=== PATIENT | female | born 1940 | race Caucasian/White ===

== ENCOUNTER 2016-11-15 10:14 | Inpatient (IN) ==
--- NOTE | 2016-11-12 13:30 | EKG Report ---
Test Performed on : 11/12/2016 11:32:34 AM Test Reason : pat Blood Pressure : / mmHG Vent. Rate : 122 BPM Atrial Rate : 122 BPM P-R Int : 184 ms QRS Dur : 080 ms QT Int : 308 ms P-R-T Axes : 020 008 056 degrees QTc Int : 438 ms Sinus tachycardia. Nonspecific T wave abnormality Abnormal ECG No previous ECGs available Confirmed by Victor Manuel PERSON, Ja Faye ([id number]) on 11/13/2016 5:46:05 PM
[2016-11-15] MEDS ORDERED: REGLAN ONE (10:41)
[2016-11-15] MEDS ORDERED: PEPCID ONE ×2 (10:41)
[2016-11-15] MEDS ORDERED: LR 1,000 ML ONE ×2 (10:42→16:52)
[2016-11-15] MEDS ORDERED: KEFZOL 1 GM/D5W 1 GM/50 ML IVPB ONE (10:42)
[2016-11-15] MEDS ORDERED: TOPROL XL ONE (11:04)
[2016-11-15] MEDS ORDERED: MARCAINE 0.25% PF/EPI 1:200,000 ONE (14:14)
[2016-11-15] MEDS ORDERED: MURI-LUBE MINERAL OIL ONE (14:27)
[2016-11-15] MEDS ORDERED: D5 1/2 NS + KCL 20 MEQ 1,000 ML ONE (16:45)
[2016-11-15] MEDS ORDERED: FENTANYL ONE (16:45)
[2016-11-15] MEDS ORDERED: DIPRIVAN 1% ONE (16:45)
[2016-11-15] MEDS ORDERED: ZOFRAN ONE (16:51)
[2016-11-15] MEDS ORDERED: XYLOCAINE-MPF 2% ONE (16:52)
[2016-11-15] MEDS ORDERED: DECADRON ONE (16:52)
[2016-11-15] MEDS ORDERED: EPHEDRINE ONE (16:52)
[2016-11-15] MEDS ORDERED: TYLENOL PO PRN (16:54)
[2016-11-15] MEDS ORDERED: NORCO-10 PO PRN (16:55)
[2016-11-15] MEDS ORDERED: SODIUM CHLORIDE 0.9% INJ PRN (17:00)
[2016-11-15] MEDS ORDERED: PHENERGAN IV PRN (17:00)
[2016-11-15] MEDS: MORPHINE IV PRN (17:49)
[2016-11-15] MEDS: ZOSYN 3.375 GM/NS 3.375 GM/50 ML IVPB IV SCH (18:52)
[2016-11-15] MEDS: TORADOL IV SCH ×2 (18:53→21:48)
[2016-11-15] MEDS ORDERED: PERIDEX MT SCH (21:00)
[2016-11-15] MEDS: PERIDEX MT SCH (21:48)
[2016-11-16] MEDS: ZOSYN 3.375 GM/NS 3.375 GM/50 ML IVPB IV SCH ×6 (00:38→23:16)
[2016-11-16] MEDS: TORADOL IV SCH ×5 (04:09→23:16)
[2016-11-16] MEDS: D5 1/2 NS + KCL 20 MEQ 1,000 ML IV SCH ×3 (04:09→23:32)
[2016-11-16 06:37] LABS: MANUAL DIFF NEEDED? NO
[2016-11-16 06:45] LABS: BASO% 0.1 % (0.0-0.8); HEMATOCRIT 29.4 % (37.0-47.0); HEMOGLOBIN 9.4 g/dL (12.0-16.0); IMM GRAN# 0.02 X1000 (0.0-0.04); IMM GRAN% 0.2 % (0.0-0.5); LYMPH# 0.95 X1000 (1.2-3.4); LYMPH% 9.7 % (20.5-51.1); MCH 31.2 PG (27-31); MCV 97.7 FL (81-99); MONO# 1.37 X1000 (0.11-0.59); MPV 10.4 FL (7.4-10.4); PLT 247 X1000 (130-400); RBC 3.01 XMIL (4.2-5.4)
[2016-11-16 07:10] LABS: AGAP 12; BUN 11 mg/dL (8-22); CALCIUM 7.4 mg/dL (8.8-10.2); CHLORIDE 104 mmol/L (98-107); COSMO 283; POTASSIUM 3.8 mmol/L (3.5-5.1); SODIUM 141 mmol/L (136-145); TCO2 25 mmol/L (25-35)
[2016-11-16] MEDS: TOPROL XL PO SCH (13:12)
[2016-11-16] MEDS: LOTENSIN PO SCH (13:12)
[2016-11-16] MEDS: PERIDEX MT SCH ×2 (13:12→20:13)
[2016-11-16] MEDS: MORPHINE IV PRN (23:30)
[2016-11-17] MEDS: TORADOL IV SCH ×4 (05:53→23:11)
[2016-11-17] MEDS: ZOSYN 3.375 GM/NS 3.375 GM/50 ML IVPB IV SCH ×4 (05:53→23:11)
[2016-11-17] MEDS: D5 1/2 NS + KCL 20 MEQ 1,000 ML IV SCH (05:53)
[2016-11-17] MEDS: LOTENSIN PO SCH (10:55)
[2016-11-17] MEDS: PERIDEX MT SCH ×2 (10:55→21:24)
[2016-11-17] MEDS: TOPROL XL PO SCH (10:55)
[2016-11-17] MEDS: MORPHINE IV PRN (10:56)
[2016-11-18] MEDS: D5 1/2 NS + KCL 20 MEQ 1,000 ML IV SCH (03:24)
[2016-11-18] MEDS: TORADOL IV SCH (04:57)
[2016-11-18] MEDS: ZOSYN 3.375 GM/NS 3.375 GM/50 ML IVPB IV SCH ×4 (05:00→22:52)
[2016-11-18] MEDS: TOPROL XL PO SCH (08:27)
[2016-11-18] MEDS: PERIDEX MT SCH ×2 (08:27→21:10)
[2016-11-18] MEDS: LOTENSIN PO SCH (08:27)
[2016-11-18] MEDS: MORPHINE IV PRN (10:24)
[2016-11-18] MEDS: TORADOL PO SCH ×3 (11:29→22:51)
--- NOTE | 2016-11-18 20:03 | PROGRESS NOTE ---
DATE: 11/18/2016 Ms. Olvera is now postop day 3 from a left modified radical mastectomy. Her tumor was so large in her left breast that we could not bring the skin together so she has an open wound medially which we have treated with dressing changes but today we will place a wound VAC on it with the help of our wound care nurse. We will try to get her to rehabilitation in the next 2 days, she will need wound care, and then she will need a split-thickness skin graft once this wound begins to granulate. She does have a JIMMY drain in her left axilla which is draining serous fluid and the lateral aspect of her wound is closed using brie and it seems to be healing without evidence of infection. She is on IV Zosyn because she had an infected necrotic tumor at the time of surgery. Overall I think she is doing well and we will continue IV antibiotics and wound care until discharge to rehabilitation. We have asked our wound care nurse to follow her and I have also put in a Purse Seiner consultation today. cc: Jia Blackburn MD
[2016-11-19] MEDS: ZOSYN 3.375 GM/NS 3.375 GM/50 ML IVPB IV SCH ×4 (02:32→23:19)
[2016-11-19] MEDS: D5 1/2 NS + KCL 20 MEQ 1,000 ML IV SCH (05:32)
[2016-11-19] MEDS: TORADOL PO SCH ×5 (05:33→22:20)
[2016-11-19] MEDS: LOTENSIN PO SCH (10:33)
[2016-11-19] MEDS: PERIDEX MT SCH ×2 (10:34→21:47)
[2016-11-19] MEDS: TOPROL XL PO SCH (10:34)
--- NOTE | 2016-11-19 11:19 | PROGRESS NOTE ---
DATE: 11/19/2016 SUBJECTIVE: Ms. Olvera is now postop day 4 from a left modified radical mastectomy. Her tumor was so large that we could not get her skin closed, so she is hospitalized with a wound VAC. She also has a JIMMY drain in place in the left axilla. She remains on IV antibiotics because of her open draining cancer when we performed her left modified radical mastectomy. Wound VAC was placed yesterday by a wound care nurse. The JIMMY drain remains in place and the drainage is satisfactory. There is no evidence of infection involving her wound and we are encouraging good nutrition. We need to send her we feel to rehab for wound care. Hopefully, plans will be made today and tomorrow for this. Her heart rate is 79, blood pressure 164/82, O2 saturation 97%. She is afebrile. She is eating 75% to 100% of her meals. She is voiding without problems and has had a bowel movement during her hospitalization. Her JIMMY drain is draining 20 to 75 mL per shift. cc: Jia Blackburn MD
[2016-11-20] MEDS: TORADOL PO SCH ×2 (06:01→12:10)
[2016-11-20] MEDS: ZOSYN 3.375 GM/NS 3.375 GM/50 ML IVPB IV SCH ×3 (06:04→12:11)
[2016-11-20] MEDS ORDERED: PNEUMOVAX 23 IM ONE (09:15)
[2016-11-20] MEDS: TOPROL XL PO SCH (09:50)
[2016-11-20] MEDS: LOTENSIN PO SCH (09:50)
[2016-11-20] MEDS: PERIDEX MT SCH (09:50)
--- NOTE | 2016-11-20 11:29 | DISCHARGE SUMMARY ---
ADMISSION DATE: 11/15/2016 DISCHARGE DATE: 11/20/2016 ADMITTING DIAGNOSIS: Advanced left breast cancer. DISCHARGE DIAGNOSIS: Advanced left breast cancer. PRINCIPAL PROCEDURE: Left modified radical mastectomy on 11/20/2016. DISCHARGE DISABILITY: Full. DISCHARGE DISPOSITION: She will be going to rehabilitation for wound care. DISCHARGE MEDICATIONS: Benazepril 10 mg p.o. daily; Lorcet Plus 1 p.o. q.4 hours p.r.n. pain; Toprol XL 25 mg p.o. daily. ALLERGIES: No known drug allergies. DIET: Regular. DISPOSITION: She needs to return to our outpatient offices in approximately 1 week to determine whether her JIMMY drain needs to be removed and for a wound check. She will be discharged with a wound VAC and that needs to be continued at discharge. HOSPITAL COURSE: Ms. Melody Olvera is a 76-year-old white female who had an advanced left breast cancer involving her entire breast. This tumor started to involve her skin and she had an open wound which was messy. Initially, she was treated with chemotherapy under the direction of Dr. Ruth Caballero, but she came back to our office for consideration of a toilet mastectomy, which we performed on her day of admission, 11/17/2016. Because of her large tumor, we were unable to close the mastectomy wound primarily and were using a wound VAC to help with granulation tissue and to manage this wound. She also has a JIMMY drain within her left axilla because we did dissect out her left axillary lymph nodes. We kept her on IV antibiotics after surgery because of the contaminated draining open wound or cancer. She did quite well after surgery. Our Wound Care nurse placed a wound VAC and her JIMMY drain was emptied. She was eating 75% to 100% of her meals. Her pain was well controlled and it was felt safe to discharge her to rehabilitation to help with care of her wounds, with followup in our outpatient office. At discharge, her heart rate was 84, blood pressure 220/96, and O2 saturation 98%. She was voiding without difficulty. She was eating a regular diet and she was afebrile on IV Zosyn. Our plans are to stop her IV Zosyn, and return her to her home medications and Lorcet Plus for pain. cc: Jia Blackburn MD
--- NOTE | 2016-11-20 11:44 | OPERATIVE NOTE ---
PROCEDURE DATE: 11/15/2016 PREOPERATIVE DIAGNOSIS: Locally advanced left breast cancer. POSTOPERATIVE DIAGNOSIS: Locally advanced left breast cancer. PRINCIPAL PROCEDURE: Left modified radical mastectomy. SURGEON: Jia Blackburn MD ANESTHESIA: General. ESTIMATED BLOOD LOSS: 100 mL. DRAINS: 10 flat Raymond-Rosen drain left axilla. INDICATIONS: Ms Melody Olvera is a 76-year-old white female who has a locally advanced breast cancer that involves her entire breast. It has also broken through the skin and is draining and the wound has become messy. She has seen Dr. Ruth Caballero for chemotherapy because she has metastatic disease to her lung, but despite her chemotherapy her local tumor in the left breast has become more difficult to manage and we recommended a toilet mastectomy. FINDINGS: The tumor seem to involve the pectoralis major muscle medially. We took some of that muscle with the tumor. We were unable to close the wound because of the large size of the tumor medially. We closed the lateral aspect of the wound and placed a JIMMY drain in the left axilla. We did dissect out at least level 1 and 2 lymph nodes of the axilla. We preserved the thoracodorsal and long thoracic nerves in the left axilla. DESCRIPTION OF PROCEDURE: The patient was brought to the operating room, placed supine, received general anesthesia, was intubated. Her left chest and breast and axilla were prepped and draped within a sterile field. She received Ancef prophylactically. I marked a transverse mastectomy incision, which encompassed most of the skin of the breast because of this tumor and it extended laterally into the left axilla. I made the incision with a 10 blade scalpel through the skin and then used the cautery to create a superior flap to the axilla and an inferior flap to the inframammary fold. I then used the cautery to remove the breast from medial to lateral off the left chest and I had to take some of the underlying pectoralis major muscle especially medially. Because of the size of the tumor, I removed the breast and it was sent as a separate specimen to the radiologist. I then dissected out the left axilla. I identified the margins of the axilla, of the serratus anterior medially, the axillary vein superiorly, and the latissimus dorsi laterally. I dissected the axillary contents from superior to inferior. We identified the thoracodorsal and long thoracic nerves and had a good level 1 and 2 axillary dissection. We did take the intercostal brachial nerves. This specimen was sent separately for permanent section. The JIMMY drain was placed in the left axilla. I was able close the lateral aspect of the wound with a skin clip document preparer microfilming. The medial aspect of the wound had to remain open and we dressed it with saline dressings with plans later to put a wound VAC on it. She tolerated the procedure well with plans for her to go to the recovery room and then be admitted to the hospital. cc: Jia Blackburn MD
[2016-11-20 14:40] VITALS: BP 204/78
== END 2016-11-20 18:13 ==
LOC: OR 10:14 → 4N 10:14 → OBSVTOIN 15:02
PROVIDERS: ADMIT Surgery; ATTEND Surgery

== ENCOUNTER 2016-12-05 12:52 | Inpatient (IN) ==
[2016-12-05 13:42] LABS: MANUAL DIFF NEEDED? NO
[2016-12-05 13:44] LABS: BASO% 0.8 % (0.0-0.8); EOS# 0.18 X1000 (0.0-0.7); EOS% 3.5 % (0.0-10.0); HEMATOCRIT 36.8 % (37.0-47.0); HEMOGLOBIN 11.5 g/dL (12.0-16.0); IMM GRAN# 0.03 X1000 (0.0-0.04); IMM GRAN% 0.6 % (0.0-0.5); LYMPH# 1.58 X1000 (1.2-3.4); LYMPH% 30.3 % (20.5-51.1); MCH 30.7 PG (27-31); MCHC 31.3 g/dL (33-37); MCV 98.4 FL (81-99); MONO# 0.81 X1000 (0.11-0.59); MONO% 15.5 % (1.7-9.3); MPV 10.7 FL (7.4-10.4); NEUT% 49.3 % (42.2-75.2); PLT 230 X1000 (130-400); RBC 3.74 XMIL (4.2-5.4)
[2016-12-05 13:52] LABS: ACETONE SERUM NEGATIVE (NEGATIVE)
[2016-12-05 14:05] LABS: AGAP 13; ALBUMIN 3.6 g/dL (3.5-5.0); ALKALINE PHOSPHATASE 77 U/L (32-104); BUN 15 mg/dL (8-22); CALCIUM 8.2 mg/dL (8.8-10.2); CHLORIDE 101 mmol/L (98-107); COSMO 281; GOT 14 U/L (10-30); GPT 8 U/L (10-36); MAGNESIUM 2.1 mg/dL (1.5-2.7); SODIUM 140 mmol/L (136-145); TCO2 26 mmol/L (25-35); TOTAL BILIRUBIN 0.17 mg/dL (0.20-1.00); TOTAL PROTEIN 6.3 g/dL (6.3-8.3)
[2016-12-05 14:24] LABS: FREE T4 1.09 ng/dL (0.93-1.70)
--- NOTE | 2016-12-05 14:56 | Diag Imaging Result Document ---
PROCEDURE NAME: HEAD W/O CONTRAST - 12/05/2016 CT OF THE HEAD WITHOUT CONTRAST: FINDINGS: There are patchy areas of lucency in the white matter of both hemispheres, particularly in the right frontal lobe and the posterior left hemisphere. There are calcifications in the globus pallidus bilaterally. Considering differences in technique, there has been no significant change since 08/05/2016. No evidence of bleed or mass effect is present. IMPRESSION: 1. Extensive chronic ischemic white matter change. 2. Microvascular changes in the basal ganglia and thalami. 3. No evidence of acute change since 08/05/2016.
[2016-12-05 15:00] LABS: URINE MICRO REVIEW NEEDED? NO; URINE SOURCE CLEAN CATCH
[2016-12-05 15:08] LABS: BILIRUBIN URINE NEGATIVE (NEGATIVE); BLOOD URINE NEGATIVE (NEGATIVE); COLOR YELLOW; GLUCOSE URINE NEGATIVE (NEGATIVE); LEUKOCYTES URINE TRACE (NEGATIVE); NITRITE URINE NEGATIVE (NEGATIVE); PROTEIN URINE NEGATIVE (NEGATIVE); SP GRAVITY URINE 1.014; TURBIDITY URINE CLEAR (CLEAR); UROBILINOGEN URINE NORMAL (NORMAL)
[2016-12-05 15:09] LABS: UR EPITHELIAL CELLS <10 /HPF (<10); URINE BACTERIA NEGATIVE /HPF; URINE CULTURE NEEDED? YES; URINE RBC <10 /HPF (<10); URINE WBC <10 /HPF (<10)
--- NOTE | 2016-12-05 16:03 | ED EKG INTERP ---
This chart was entered by Tiffanie Cadet Scribe, acting as scribe for Leonie Millan MD. EKG Interpretation - EKG Time of EKG reading by physician:: 14:16 EKG Read and Signed by:: Leonie Millan EKG Interpretation (*Must complete 3 of following elements*): Abnormal Rate: 88 Rhythm: nsr Gobler: normal QRS: LVH ME Interval: normal ST Wave: normal This chart was documented by the indicated scribe, (Tiffanie Cadet Scribe) and accurately reflects the services I performed and decisions made by me, Leonie Millan MD, as attested by the provider's signature.
--- NOTE | 2016-12-05 16:20 | PROVIDER DOCUMENTATION ---
This chart was entered by Tiffanie Cadet Scribe, acting as scribe for Leonie Millan MD. HPI-Psychological Disorder - General Stated Complaint: HI, schizophrenia Time Seen by Provider: 12/05/16 12:56 Source: patient Allergies/Adverse Reactions: Patient Allergies Allergy/AdvReac Type Severity Reaction Status Date / Time No Known Allergies Allergy Verified 12/05/16 16:54 Home Medications: Home Medication List Medication Instructions Recorded Confirmed Last Taken Type Benazepril HCl 10 mg PO DAILY 11/12/16 12/05/16 12/05/16 08:00 History Metoprolol Succinate E.r. [Toprol 25 mg PO DAILY 11/12/16 12/05/16 12/05/16 08: 00 History Xl] Hydrocodone/APAP 7.5 mg/325 mg 1 each PO Q4H PRN PRN #30 tablet 11/20/1612/05/16 08:00 Rx [[place]-7.5] Acetaminophen 325 mg PO DAILY 12/05/16 12/05/16 12/05/16 08:00 History Ondansetron [Zofran] 4 mg PO PRN PRN 12/05/16 12/05/16 Unknown History Protein Supplement [Promod] 30 ml PO BID 12/05/16 12/05/16 12/05/16 08:00 History - History of Present Illness-Psych Nature of Presenting Problem: 76 y/o F presents to ED via EMS. Pt was brought in from intermediate. ER nursing staff states to Dr. Millan that pt wrote a note. States she wrote this about her roommate and knifes were drawn on the sheet. When pt is asked if she wants to hurt somebody pt states " i dont know where you got that. who told you that". Pt states " why am i here". Pt is alert. Pt states she had a mastectomy but unsure of when. Pt denies having any cp/abd pain/sob. Pt does have pedal edema worse on the right leg than the left. Onset/Duration: reports: just prior to arrival Psychiatric Complaints: reports: homicidal thoughts (per nursing stafff at intermediate) Substance Use: reports: denies Patient arrived by:: EMS called by spouse/family (nursing staff) Review of Systems - Adult - REVIEW OF SYSTEMS - ADULT Constitutional: denies: chills, fever Ears, Nose, Mouth & Throat: denies: ear pain, throat pain Cardiovascular: denies: chest pain, palpitations Respiratory: denies: cough, shortness of breath Gastrointestinal: denies: abdominal pain, diarrhea, nausea, vomiting Musculoskeletal: denies: bone pain, back pain Neurological: denies: dizziness/vertigo, headache/migraines Psychiatric: reports: other (HI per nursing staff). denies: panic attacks Past History - Adult - PAST MEDICAL HISTORY-ADULT Review of Records: reports: Old Records Reviewed, Nursing Assessment Review Major Childhood Illnesses: reports: denies history Cardiovascular: reports: denies history Respiratory: reports: denies history Gastrointestinal: reports: denies history Obstetrical/Gynecological: reports: denies history Genitourinary: reports: denies history Musculoskeletal: reports: denies history Neurological: reports: denies history Psychiatric: reports: schizophrenia Endocrine/Immune: reports: denies history Other Conditions: reports: denies history - IMMUNIZATION STATUS Childhood Immunizations: See Nurse Assessment Flu Vaccine: See Nurse Assessment - FAMILY HISTORY Family History: other (breast cancer) - SOCIAL HISTORY Smoking: denies Substance Use: denies Physical Exam-Psych Focus - Physical Exam-Psych Appearance: appropriate appearance, neat, no apparent distress, alert Neurological: alert, calm Behavior/Eye Contact/Speech: good eye contact, normal speech Thoughts/Hallucinations: no apparent hallucination HENMT: moist mucous membranes, normal ENT inspection Neck: full range of motion Respiratory: chest non-tender, lungs clear, normal breath sounds Cardiovascular: normal peripheral pulses, regular rate, rhythm, no edema Abdominal Exam: non tender, soft Back Exam: no CVA tenderness, no vertebral tenderness Extremity: non-tender, normal gait Integumentary: normal color, normal turgor Progress - PLAN OF CARE/RESULTS Progress/Plan/Lab Results: Vital Signs - 8 hr 12/05/16 14:05 Temperature 98.1 F Pulse Rate 95 H Respiratory Rate 18 Blood Pressure 197/78 O2 Sat by Pulse Oximetry 98 Laboratory Results - last 24 hr 12/05/16 12/05/16 12/05/16 13:25 13:25 13:25 WBC 5.21 RBC 3.74 L Hgb 11.5 L Hct 36.8 L MCV 98.4 MCH 30.7 MCHC 31.3 L RDW Std Deviation 14.7 H Plt Count 230 MPV 10.7 H Immature Gran % (Auto) 0.6 H Neut % (Auto) 49.3 Lymph % (Auto) 30.3 [place] % (Auto) 15.5 H Eos % (Auto) 3.5 Baso % (Auto) 0.8 Immature Gran # (Auto) 0.03 Neut # (Auto) 2.57 Lymph # (Auto) 1.58 [place] # (Auto) 0.81 H Eos # (Auto) 0.18 Baso # (Auto) 0.04 D-Dimer Sodium 140 Potassium 4.0 Chloride 101 Carbon Dioxide 26 Anion Gap 13 BUN 15 Creatinine 0.7 Estimated GFR/1.73 m2 > 60 BUN/Creatinine Ratio 21 Glucose 109 H Calculated Osmolality 281 Calcium 8.2 L Magnesium 2.1 Total Bilirubin 0.17 L AST 14 ALT 8 L Alkaline Phosphatase 77 Troponin T < 0.010 Total Protein 6.3 Albumin 3.6 Globulin 2.7 Albumin/Globulin Ratio 1.3 Vitamin B12 Folate TSH Free T4 Urine Source Urine Color Urine Turbidity Urine pH Ur Specific [place] Urine Protein Ur Glucose (Stick) Ur Ketones (Stick) Urine Blood Urine Nitrite Urine Bilirubin Urobilinogen Dipstick Urine Leukocytes Urine WBC (Auto) Urine RBC (Auto) U Epithel Cells (Auto) Urine Bacteria (Auto) Salicylates < 3.00 L Acetone Level NEGATIVE RPR 12/05/16 12/05/16 12/05/16 13:25 13:25 13:25 WBC RBC Hgb Hct MCV MCH MCHC RDW Std Deviation Plt Count MPV Immature Gran % (Auto) Neut % (Auto) Lymph % (Auto) [place] % (Auto) Eos % (Auto) Baso % (Auto) Immature Gran # (Auto) Neut # (Auto) Lymph # (Auto) [place] # (Auto) Eos # (Auto) Baso # (Auto) D-Dimer Sodium Potassium Chloride Carbon Dioxide Anion Gap BUN Creatinine Estimated GFR/1.73 m2 BUN/Creatinine Ratio Glucose Calculated Osmolality Calcium Magnesium Total Bilirubin AST ALT Alkaline Phosphatase Troponin T Total Protein Albumin Globulin Albumin/Globulin Ratio Vitamin B12 149 L Folate 8.1 L TSH 4.94 H Free T4 1.09 Urine Source Urine Color Urine Turbidity Urine pH Ur Specific [place] Urine Protein Ur Glucose (Stick) Ur Ketones (Stick) Urine Blood Urine Nitrite Urine Bilirubin Urobilinogen Dipstick Urine Leukocytes Urine WBC (Auto) Urine RBC (Auto) U Epithel Cells (Auto) Urine Bacteria (Auto) Salicylates Acetone Level RPR NON-REACTIVE 12/05/16 12/05/16 13:25 14:48 WBC RBC Hgb Hct MCV MCH MCHC RDW Std Deviation Plt Count MPV Immature Gran % (Auto) Neut % (Auto) Lymph % (Auto) [place] % (Auto) Eos % (Auto) Baso % (Auto) Immature Gran # (Auto) Neut # (Auto) Lymph # (Auto) [place] # (Auto) Eos # (Auto) Baso # (Auto) D-Dimer 2.19 H Sodium Potassium Chloride Carbon Dioxide Anion Gap BUN Creatinine Estimated GFR/1.73 m2 BUN/Creatinine Ratio Glucose Calculated Osmolality Calcium Magnesium Total Bilirubin AST ALT Alkaline Phosphatase Troponin T Total Protein Albumin Globulin Albumin/Globulin Ratio Vitamin B12 Folate TSH Free T4 Urine Source CLEAN CATCH Urine Color YELLOW Urine Turbidity CLEAR Urine pH 6.0 Ur Specific [place] 1.014 Urine Protein NEGATIVE Ur Glucose (Stick) NEGATIVE Ur Ketones (Stick) NEGATIVE Urine Blood NEGATIVE Urine Nitrite NEGATIVE Urine Bilirubin NEGATIVE Urobilinogen Dipstick NORMAL Urine Leukocytes TRACE A Urine WBC (Auto) <10 Urine RBC (Auto) <10 U Epithel Cells (Auto) <10 Urine Bacteria (Auto) NEGATIVE Salicylates Acetone Level RPR Orders Category Date Time Status ABD/PELVIS/PULM ARTERIES [CT] Stat Exams 12/05/16 16:02 Taken HEAD W/O CONTRAST [CT] Stat Exams 12/05/16 13:06 Completed ACETONE SERUM [CHEM] Stat Lab 12/05/16 13:25 Completed CBC WITH ELECTRONIC DIFF [HEME] Stat Lab 12/05/16 13:25 Completed COMPREHENSIVE METABOLIC PANEL [CHEM] Stat Lab 12/05/16 13:25 Completed D-DIMER [CHEM] Stat Lab 12/05/16 13:25 Completed FOLATE Stat Lab 12/05/16 13:25 Completed FREE T4 Stat Lab 12/05/16 13:25 Completed MAGNESIUM [CHEM] Stat Lab 12/05/16 13:25 Completed RPR [SERO] Stat Lab 12/05/16 13:25 Completed SALICYLATES [TDM] Stat Lab 12/05/16 13:25 Completed TROPONIN T Stat Lab 12/05/16 13:25 Completed TSH Stat Lab 12/05/16 13:25 Completed URINALYSIS W/POSS RFLX CULT-1 [URINALYSIS] Stat Lab 12/05/16 14:48 Completed URINE CULTURE [RM] Routine Lab 12/05/16 15:20 Received VITAMIN B12 Stat Lab 12/05/16 13:25 Completed EKG [EKG] Stat Ther 12/05/16 13:01 Ordered US [Venous U/S Bilateral Legs] Stat Ther 12/05/16 14:56 Completed Transfer/Admit Order [TRANSFER] Routine Transfer 12/05/16 17:13 Ordered PT REFUSED POLI ULTRASOUND DR MILLAN IS SPEAKING WITH PT NURSE IS CALLING TO RECEIVE A COURT HOLD ON PT . 1551- PT HAS A VERBAL RN PSYCHIATRIC ORDER AT THIS TIME. SISTER IS AT BED SIDE. SISTER STATES PT HAD MASTECTOMY X 3 WEEKS AGO STATES IT IS AN OPEN WOUND. SISTER ALSO STATES PT HAS LUNG CANCER BUT IS UNSURE OF THE STAGE OR PROCESS THAT IS HAPPENING. SISTER DENIES ABOUT PT THREATENING TO STAB HER ROOMMATE. STATES HER ROOMMATE IS LOUD BUT WOULD NOT DO ANYTHING LIKE THAT. SISTER WILL TRY TO GET PT TO COOPERATIVE FOR POLI AND A CT OF THE CHEST WILL BE ORDERED. SISTER IS AWARE OF PLAN. PT HAS A POSITIVE DVT IN R LEG Result Diagrams: 12/05/16 13:25 12/05/16 13:25 - REASSESSMENT Reassessment #1 Time Reassessed: 15:45 Status: unchanged (PT WILL NOT DO POLI; DR MILLAN IS SPEAKING WITH PT.) Reassessment #2 Time Reassessed: 16:05 Status: unchanged (PT SISTER IS AT BEDSIDE) - CONSULTS/PCP/HOSPITALIST Notification #1 *Consult/PCP/Hospitalist*: Time Discussed: 17:17 Consult Disposition: Admit (ICU admit) Departure - Departure Time of Disposition Decision: 17:34 DIAGNOSIS: Psychosis DVT (deep venous thrombosis) Qualifiers: DVT location: lower extremity Affected thrombotic vein of extremity: popliteal Laterality: right Chronicity: acute Qualified Code(s): I82.431 - Acute embolism and thrombosis of right popliteal vein Disposition: ADMITTED INPATIENT 09 Certified Medical Emergency: Emergent Condition: Stable Referrals and Follow-Ups: None,PCP [Primary Care Provider] - - Critical Care Note This patient required my direct & personal management of CC.: No This chart was documented by the indicated scribe, (Tiffanie Cadet Scribe) and accurately reflects the services I performed and decisions made by Monty ruiz Wenli X, MD, as attested by the provider's signature.
[2016-12-05] MEDS ORDERED: LOVENOX 1 MG/KG SUBQ ONE (17:36)
[2016-12-05] MEDS ORDERED: LOVENOX SUBQ ONE (18:00)
--- NOTE | 2016-12-05 18:18 | Diag Imaging Result Document ---
PROCEDURE NAME: ABD/PELVIS/PULM ARTERIES - 12/05/2016 CT OF THE CHEST WITH INTRAVENOUS CONTRAST: FINDINGS: Contrast opacification of the pulmonary arteries is slightly suboptimal. There are no definite filling defects. There is no evidence of aortic aneurysm or dissection. There are no pleural effusions. There is a somewhat heterogeneous nodule in the right thyroid lobe measuring in excess of 2.8 cm in AP dimension. This was also the case on 08/03/2016. There has been left mastectomy since the previous study. There is a large apparent seroma in the space deep to the lateral paralysis muscle on the left, extending into the axillary region. There is a 16 mm left hilar node which is slightly larger than on the previous study at which time it measured 15 mm. There is a nodule in the posterior left lower lobe on image 64 which has diminished in size since the previous study from slightly less than 7 mm to slightly over 5 mm on the current study. There is another lesion more laterally located in the costophrenic sulcus region on the left which measures slightly over 7 mm currently compared to slightly less than 7 mm previously. There is patchy airtrapping. Two nodules are seen in the right middle lobe on image 68, one of which was not present previously. This measures less than 5 mm in diameter. There is a fairly well circumscribed lytic lesion on the right side of T11 which has not changed significantly other than slight increase in sclerosis in the borders of the lesion since the previous study. IMPRESSION: 1. No evidence of pulmonary emboli. 2. Metastatic lesions present in the left lower lobe and right middle lobe, some of which have enlarged or were not present at the time of the previous study. CT OF THE ABDOMEN WITH INTRAVENOUS CONTRAST: FINDINGS: There are some scattered cysts within the liver, including a fairly large bilobed cyst in the left hepatic lobe. In addition to this there is a slightly heterogeneous hypodense nodule present in the upper portion of the dome of the right hepatic lobe seen best on image 7 which measures in excess of 18 mm and transverse dimension. This is larger than on 08/05/2016. There is another somewhat indistinctly marginated lucent lesion present in the inferior right lobe posterior to the gallbladder fossa, measuring less than 9 mm in diameter. This is slightly more conspicuous than on the previous study. It may be slightly larger as well. These may be metastatic lesions. The adrenal glands are not enlarged and are unchanged in appearance. The kidneys are without evidence of hydronephrosis or mass. There is a small cyst in the upper pole of the left kidney which has not changed. The spleen is not enlarged. The pancreas is stable in appearance. There is a small calcification in the head of the pancreas which was present previously. There is stool throughout the colon. The small bowel is not distended. There is no evidence of significant adenopathy. The appendix is not enlarged. CT OF THE PELVIS WITH INTRAVENOUS CONTRAST: FINDINGS: There are scattered diverticula in the sigmoid colon without evidence of active diverticulitis. There is no evidence of free fluid. There is a lytic lesion in the right iliac wing with some slight matrix calcification. There is cortical breakthrough both anteriorly and posteriorly. The intraosseous and extraosseous component of the mass measure in excess of 4.3 cm in thickness compared to the previous study at which time it measured 3.9 cm. IMPRESSION: Hepatic and osseous metastatic disease which has worsened since the previous study of 08/05/2016.
[2016-12-05] MEDS ORDERED: CATAPRES PO ONE (18:37)
[2016-12-05] MEDS ORDERED: CATAPRES PO PRN (21:01)
[2016-12-05] MEDS ORDERED: NORCO-7.5 PO PRN (21:01)
[2016-12-05] MEDS ORDERED: LOVENOX 1 MG/KG SUBQ SCH (21:01)
[2016-12-05] MEDS ORDERED: MORPHINE IV PRN ×2 (21:01→21:29)
[2016-12-05] MEDS ORDERED: CYANOCOBALAMIN IM ONE (21:01)
[2016-12-05] MEDS ORDERED: ZOFRAN IV PRN (21:01)
--- NOTE | 2016-12-05 21:07 | HISTORY AND PHYSICAL ---
CHIEF COMPLAINT: Agitation but also some right lower extremity swelling and discomfort. HISTORY OF PRESENT ILLNESS: Briefly this is a 75-year-old female who had a mass in her left breast. I actually saw her in July when she was first diagnosed. She had a large breast mass which was felt to be a carcinoma which had already been diagnosed as breast cancer. There is a concern that it may be metastatic at this point, but in any case she was discharged and she is status post mastectomy, however, she has a very large open wound apparently that initial plan was for skin graft but at this point that was not the plan. She eventually was able to go to rehabilitation for that process. She has been in rehabilitation at this point. Apparently she had some issues she states not with her roommate but with skilled nursing services at the facility in which she was concerned that they were stealing her personal objects. She put a sign up that said, "Please do not touch" or Please stay away." Apparently there were a few knives kept from her silverware from her feeding and somehow it ended up being construed that the patient was threatening the life of her roommate, and there was a psychiatric issue with harming other people. She denied this to me. She states that she just indicated that she was just concerned about someone stealing her stuff. She denies any suicidal or homicidal ideation. Reportedly she has a history of bipolar disorder. There are no visits that indicate any psychiatric problems here. She appears alert and without any complications. She had an MRI which shows no metastatic lesions so I am not sure how to place her psychiatric complaints although at this point I do not think she has an active psychiatric issue. Part of braden workup in the ER did show a DVT in her right popliteal area and she is being admitted for that and observation because she does have an open wound that may be complicated by bleeding since she now has DVT for which she is at risk. She is also fairly hypertensive. In any case, the patient was evaluated and is being admitted for her DVT. PAST MEDICAL HISTORY: Against breast cancer, likely metastatic. There is some concern there has been spread to her bones. Her CT scan from July did show bony metastases reportedly. There were scattered lesions in her liver. There was a right iliac lesion 3 cm in her right iliac area. I do not see a bone scan per se. In any case, no other history although I do think she has hypertension. She has been on benazepril and Toprol previously. FAMILY HISTORY: Noncontributory. Sister reports she has 2 other sisters who have had breast cancer. SOCIAL HISTORY: No tobacco or ethanol. ALLERGIES: No known drug allergies. MEDICATIONS: She is on benazepril, [place], Toprol, Zofran, ProMod. REVIEW OF SYSTEMS: Negative. PHYSICAL EXAMINATION: VITAL SIGNS: Blood pressure 197/78, heart rate 95, respiratory rate 18, temperature 98.1 degrees, 98% on room air. GENERAL: A well-developed female, in no acute distress. HEAD EXAMINATION: Normocephalic, atraumatic. EYES: Pupils equal, round, reactive to light. Extraocular movements were intact. EAR/NOSE/THROAT EXAMINATION: She had moist mucous membranes. NECK: Supple. CARDIOVASCULAR EXAMINATION: Regular rate and rhythm. No murmurs, gallops, or rubs. PULMONARY EXAMINATION: Bilateral breath sounds, clear to auscultation. GASTROINTESTINAL: Soft, nontender, nondistended. Bowel sounds are positive. NEUROLOGIC EXAMINATION: Nonfocal. MUSCULOSKELETAL EXAMINATION: in all 4 extremities. SKIN EXAMINATION: Deferred because she was in the hallway and I could not easily access her abdominal examination or skin examination in a private fashion, but we will analyze that when she is in the room. LABORATORY DATA: Hemoglobin and hematocrit 11 and 36, white count is normal. D-dimer was high at 2.19. CMP was unremarkable. B12 and folate levels were very low. TSH was high, but free T4 was normal. Urine was clear. PROBLEM LIST: This is a 76-year-old female with breast cancer, likely metastatic, who presents with DVT and has open wounds that are in the process of healing. 1. Deep vein thrombosis. We will continue Lovenox. I am going to get Dr. Blackburn to evaluate her for long-term anticoagulation. 2. Anemia. It looks like she has got B12 and folate deficiency. We will supplement those and follow. 3. Hypertension. We will adjust her medications accordingly and follow. 4. Psychiatric. We will continue to analyze. Again I do not get a sense interviewing her directly with her family that there is a suicidal or homicidal ideation at this point but we will continue to manage and deal with accordingly. cc: Lalit Henderson MD
[2016-12-05] MEDS ORDERED: LOVENOX SUBQ SCH (22:00)
[2016-12-05] MEDS: FOLIC ACID 1 MG in NS 50 ML IV SCH (23:00)
[2016-12-06] MEDS: LOVENOX SUBQ SCH ×2 (06:51→18:40)
[2016-12-06] MEDS: TYLENOL PO SCH (09:27)
[2016-12-06] MEDS: VITAMIN B-12 PO SCH (09:27)
[2016-12-06] MEDS: TOPROL XL PO SCH (09:27)
[2016-12-06] MEDS: LOTENSIN PO SCH (09:27)
--- NOTE | 2016-12-06 15:31 | CONSULTATION ---
DATE OF CONSULTATION: 12/06/2016 Consultation is for patient known, metastatic breast cancer. HISTORY OF PRESENT ILLNESS: Ms. Olvera is a patient known to us as we are currently treating her for metastatic breast cancer who recently had a mastectomy due to ulcerating breast mass. After her surgery she was transferred to a rehab facility where she has been the last several days. Evidently, there was some misunderstandings in regards to a sign that the patient put up at the facility as well as something in regards to knives. The patient was transferred here due to what appears to be psych issues. During her workup, she was discovered to have a DVT. The patient denies any threatening behavior while at the rehab facility. The patient is in her room today with her sister and is doing well. PAST MEDICAL HISTORY: 1. Metastatic breast cancer. 2. Hypertension. 3. Previous cataracts. SURGICAL HISTORY: Cataract surgery 2012, recent left mastectomy. SOCIAL HISTORY: Patient is single. She usually lives with a sister. She has no children. Most recently, she has been a resident of a local [place] [facility]rehab facility. She has no history of tobacco use previously. She denies any alcohol use or illicit drug use. FAMILY HISTORY: Her mother is as is her father. She has 3 sisters who are currently living with no known health issues. REVIEW OF SYSTEMS: As per the HPI. All else is negative or noncontributory. PHYSICAL EXAMINATION: Vital Signs: Today with a temperature 97.9 degrees, heart rate 87, respirations 19, blood pressure 155/75, O2 saturation 95% on 2 L nasal cannula. General: female sitting up in hospital bed. She is in no acute distress. She is not hostile or agitated. Her sister is at bedside. HEENT: Head appears normocephalic atraumatic. Eyes: Pupils equal, round, reactive. Patient does have glasses in place. Ears, nose, throat, neck and mouth: Oral mucosa appears to be normal. Trachea is midline. Gross auditory acuity is intact. Cardiovascular: S1, S2 heard. No murmurs, gallops, rubs appreciated. Regular rate and rhythm. Respiratory: Clear to auscultation bilaterally. Normal respiratory effort. Gastrointestinal: Abdomen is soft, nondistended. Positive bowel sounds. Musculoskeletal: No bony abnormalities noted. The patient has a wound VAC in place on her left chest wall without any surrounding erythema or redness. Extremities: No edema. LABS AND STUDIES: White blood cells 5.21, hemoglobin 11.5, hematocrit 36.8, platelets 230,000. Sodium 140, potassium 4.0, chloride 101, CO2 26, BUN 15, creatinine 0.7. D-dimer 2.19. Vitamin B12 149 and folate 8.1. Urine culture is negative. Head CT negative. CT of chest, abdomen and pelvis compared to a scan done in July 2016 showed no evidence of pulmonary emboli. Metastatic lesions present in the left lower lobe and right lower lobe some which have enlarged or were not present at the time of the previous study. CT of abdomen and pelvis shows hepatic and osseous metastatic disease which has worsened since the previous study of 08/05/2016. ASSESSMENT AND PLAN: 1. Metastatic breast cancer. Patient was in the midst of receiving Taxol chemotherapy in our office. She is status post 11 cycles. Her chemo has been held most recently due to requiring a mastectomy. Chemo will be on hold for the time being. 2. Recent left mastectomy now with open wound. Her wound actually looks really good at this point. Continue current management with a wound VAC. General Surgery has been consulted to help with her wound management. 3. Possible delirium. Patient does have known psychiatric issues. However, she has not exhibited the type of behavior that has been described from the [place] [facility] [place]. The patient denies any aggressive behavior. Her head CT is negative and her labs are all stable. We will go ahead and check an ammonia level given that she has hepatic mets. Continue to monitor closely. 4. Anemia. Patient has been found to be vitamin B12 as well as folate deficient. These both have been repleted. Continue at this time. I want to thank you for consulting us on Ms. Olvera. Will continue to follow along and adjust our plan per hospital course. Dictated by EUGENIO Lindquist for Ruth Caballero MD cc: Ruth Caballero MD
--- NOTE | 2016-12-06 16:56 | PROGRESS NOTE ---
DATE: 12/06/2016 SUBJECTIVE: The patient has no focal complaints. OBJECTIVE: Vital Signs: Her vital signs seem to be improved with blood pressure 155/75, heart rate of 87, respiratory rate 19, temperature 97.9 degrees, and oxygen saturation 94% on 1 liter. Cardiovascular: Regular rate and rhythm. Pulmonary: Bilateral breath sounds. Clear to auscultation. Gastrointestinal: Soft, nontender, nondistended. Bowel sounds are positive. LABORATORY DATA: No new data this morning. Ammonia level was only 24. PROBLEM LIST: 1. Deep vein thrombosis, I believe, right lower extremity. We will continue Lovenox until Dr. Blackburn has evaluated the patient and okays [facility]ci anticoagulation. 2. B12 folate deficiency. We will supplement and follow. 3. Hypertension has improved. We will adjust the medications accordingly. 4. Psychiatric, again reportedly she has a history of significant psychiatric issues, but currently I just do not appreciate any major problems, so we will continue to monitor closely. I think we can get her home once we have stabilized her medications. The plan is to try Xarelto, hopefully that will be her home medication. cc: Lalit Henderson MD
[2016-12-06] MEDS: FOLIC ACID 1 MG in NS 50 ML IV SCH (23:03)
[2016-12-07 07:53] LABS: AGAP 11; BUN 9 mg/dL (8-22); CALCIUM 8.3 mg/dL (8.8-10.2); CHLORIDE 105 mmol/L (98-107); COSMO 282; SODIUM 142 mmol/L (136-145); TCO2 26 mmol/L (25-35)
[2016-12-07 08:35] LABS: HEMATOCRIT 38.7 % (37.0-47.0); HEMOGLOBIN 12.2 g/dL (12.0-16.0); MCH 30.7 PG (27-31); MCHC 31.5 g/dL (33-37); MCV 97.2 FL (81-99); MPV 10.9 FL (7.4-10.4); RBC 3.98 XMIL (4.2-5.4)
[2016-12-07] MEDS: VITAMIN B-12 PO SCH (09:32)
[2016-12-07] MEDS: TOPROL XL PO SCH (09:32)
[2016-12-07] MEDS: TYLENOL PO SCH (09:32)
[2016-12-07] MEDS: LOTENSIN PO SCH (09:33)
--- NOTE | 2016-12-07 14:54 | PROGRESS NOTE ---
DATE: 12/07/2016 SUBJECTIVE: The patient does not really have any major complaints. She seems to be doing okay. OBJECTIVE: Vital signs: Blood pressure 158/88, heart rate 88, respiratory rate 10, temperature 98.1 degrees, 95% on room air. Cardiovascular: Regular rate and rhythm. Pulmonary: Bilateral breath sounds. Clear to auscultation. Gastrointestinal: Soft, nontender, nondistended. Bowel sounds are positive. Extremities: No clubbing or cyanosis. Lymphatics: No peripheral edema. Neurological: Nonfocal. LABORATORY DATA: Hemoglobin and hematocrit 12 and 38, platelets okay. BMP was normal. PROBLEM LIST: 1. Deep vein thrombosis. Still waiting on getting that report. I am going to transition her to [facility]. 2. Open wound with wound VAC. Awaiting surgical opinion. 3. B12/folate deficiency. Will continue treatment. DISPOSITION: The patient came from rehabilitation. We will continue to monitor to see if she meets rehabilitation needs and progresses with PT versus going home, although she has a complicated wound and I am not sure how much support she has at home, unfortunately, so we will continue to follow. cc: Lalit Henderson MD
[2016-12-07] MEDS: FOLIC ACID PO SCH (16:49)
[2016-12-07] MEDS: ELIQUIS PO SCH (21:33)
[2016-12-08] MEDS: ELIQUIS PO SCH ×2 (10:19→21:32)
[2016-12-08] MEDS: FOLIC ACID PO SCH (10:19)
[2016-12-08] MEDS: VITAMIN B-12 PO SCH (10:19)
[2016-12-08] MEDS: TYLENOL PO SCH (10:19)
[2016-12-08] MEDS: TOPROL XL PO SCH (10:19)
[2016-12-08] MEDS: LOTENSIN PO SCH (10:20)
--- NOTE | 2016-12-08 21:36 | PROGRESS NOTE ---
DATE: 12/08/2016 SUBJECTIVE: The patient has no focal complaints. OBJECTIVE: Vital signs: Blood pressure 130/71, heart rate of 86, respiratory rate 18, temperature 98.6 degrees, 96% on room air. Cardiovascular: Regular rate and rhythm. Pulmonary: Bilateral breath sounds. Clear to auscultation. GI: Soft, nontender, nondistended. Bowel sounds are positive. LABORATORY DATA: None today. PROBLEMS: 1. Deep venous thrombosis. We will continue apixaban and follow. 2. Metastatic breast cancer with open wound. She is currently getting a wound VAC. We will continue to follow. Dr. Blackburn has been managing this. 3. Disposition is somewhat complicated. She has a wound VAC and I do not think she really has much support at home. She would like to go home, but I am not sure exactly how to manage the wound VAC at home. It may be able to be done with home health. We will get social work to evaluate this tomorrow and then decide about going home. Rehab she had I believe completed her days, additionally, probably will not be able to go back to back to rehab facility because there was questionable threats towards her roommate, although she denies this and she has not exhibited any threatening behavior since she has been hospitalized. I am not sure what to make out of that process. So unfortunately we have to monitor her till tomorrow so that we can have a safe disposition for her. Otherwise medically, she is stable for discharge. cc: Lalit Henderson MD
[2016-12-09] MEDS: VITAMIN B-12 PO SCH (09:57)
[2016-12-09] MEDS: FOLIC ACID PO SCH (09:57)
[2016-12-09] MEDS: ELIQUIS PO SCH ×2 (09:57→22:08)
[2016-12-09] MEDS: LOTENSIN PO SCH (09:57)
[2016-12-09] MEDS: TYLENOL PO SCH (09:57)
[2016-12-09] MEDS: TOPROL XL PO SCH (09:57)
--- NOTE | 2016-12-09 17:29 | PROGRESS NOTE ---
DATE: 12/09/2016 SUBJECTIVE: Ms. Olvera there is some agitation. She has right lower extremity swelling. Overall she feels better. She would like to go home. There is some talk about where to go. She has a couple sisters that are working on a place for now. [facility], I do not know the details that situation. We saw in July, diagnosed with large breast mass felt to be carcinoma and she already been diagnosed with breast cancer. There is concern that may be a metastatic at this point but in case she was discharged and she is status post mastectomy. However she has a very large open wound. Apparently the initial plan was for skin graft. At this point that is not the plan and she was able to go to rehabilitation and in rehab apparently she had some issues the roommate and longterm services at the facility and she was concerned they were stealing her personal objects, put a sign that do not touch and please stay away, apparently there were a few nights she kept her silverware for her feeding and somehow ended up being construed that the patient was threatening life of roommate. At any rate there was some issues of concern that she had potential harm some people. She denied this and she denied any suicidal or homicidal ideation. She has a history of bipolar disorder. No visits indicate psychiatric illness. She had an MRI which showed metastatic lesions so she was admitted to the hospital to treat the DVT but also determine placement opportunities. The CT scan in July showed bony metastasis reportedly there were scattered lesions in the liver, the right iliac lesion was 3 cm in right iliac area. Patient is breathing comfortably. She wants to go home. EXAM: Vital signs: Today temperature 97.6 degrees, pulse 86, respirations 19 blood pressure 160/59. HEENT: Pupils are equal, round. Lungs: Clear in all lung randall. Cardiovascular: Regular rhythm, rate without murmur, S3. Abdomen: Soft. Skin: Warm and dry. Urine output was 2 L. LAB: Reviewed from the is unremarkable. ASSESSMENT AND PLAN: 1. Deep venous thrombosis. Continue apixaban. From that standpoint she is ready go. 2. Metastatic breast cancer with open wound currently getting wound vacuum-assisted closure. Continue follow. Dr. Blackburn has been managing his. 3. Disposition somewhat complicated. She has a wound vacuum-assisted closure, at this point I think the sisters are trying to arrange for her come home but they have no place for her right now. I am not sure if options for rehab are available, will have social service assist in that. Reviewed her orders. I do not see anything to change at this point. cc: Fernie Godwin MD
[2016-12-10] MEDS: FOLIC ACID PO SCH (09:10)
[2016-12-10] MEDS: VITAMIN B-12 PO SCH (09:11)
[2016-12-10] MEDS: ELIQUIS PO SCH ×2 (09:11→21:06)
[2016-12-10] MEDS: LOTENSIN PO SCH (09:11)
[2016-12-10] MEDS: TOPROL XL PO SCH (09:11)
[2016-12-10] MEDS: TYLENOL PO SCH (09:11)
--- NOTE | 2016-12-10 18:02 | PROGRESS NOTE ---
DATE: 12/10/2016 SUBJECTIVE: Ms. Olvera is feeling better, breathing better, comfortable. She still pretty weak. Physical therapy working with her. OBJECTIVE: Vital Signs: Temperature 98.1 degrees, pulse 85, respirations 18, blood pressure 143/66. HEENT: Pupils are equal, round. Lungs: Clear in all lung randall. Cardiovascular: Regular rhythm and rate without murmur or S3. Abdomen: Soft. Skin is warm and dry. LAB: Reviewed from the , . ASSESSMENT AND PLAN: 1. Deep venous thrombosis. Continue apixaban. From that point she is ready to go home. 2. Metastatic breast cancer with open wound, currently wound VAC assisted closure. Dr. Blackburn has been managing this. 3. Disposition. Apparently [facility] is willing to take her back, would like to have a psych consult, so we will try and obtain that. 4. Reviewed her orders. I do not see any change. She seems to be pleasant and cooperative at this point. cc: Fernie Godwin MD
--- NOTE | 2016-12-11 07:40 | Extremity Venous Study ---
PROCEDURE NAME: Venous U/S Bilateral Legs - 12/05/2016 REFERRING PHYSICIAN: Leonie Millan MD READING PHYSICIAN: Hernandez Nguyen MD WALL STEAMER: Raymond INDICATION: Leg swelling and elevated D-dimer. FINDINGS: The common femoral, deep femoral, superficial femoral, greater saphenous, popliteal, posterior tibial, and peroneal veins were imaged bilaterally. All are compressible with forward flow and without thrombus. The gastrocnemius vein was duplicated on the right side and did appear to harbor thrombus. INTERPRETATION: Acute deep vein thrombosis of a duplicated right gastrocnemius vein. cc: Hernandez Nguyen MD
[2016-12-11] MEDS: VITAMIN B-12 PO SCH (10:24)
[2016-12-11] MEDS: FOLIC ACID PO SCH (10:24)
[2016-12-11] MEDS: TYLENOL PO SCH (10:24)
[2016-12-11] MEDS: ELIQUIS PO SCH ×2 (10:24→21:42)
[2016-12-11] MEDS: TOPROL XL PO SCH (10:24)
[2016-12-11] MEDS: LOTENSIN PO SCH (10:25)
--- NOTE | 2016-12-11 15:36 | PROGRESS NOTE ---
DATE: 12/11/2016 SUBJECTIVE: Ms. Olvera is awake, alert and pleasant and no complaints. Breathing comfortably. OBJECTIVE: Vital signs: Temperature 98.1 degrees, pulse 90, respirations 16, blood pressure 144/67. HEENT: Pupils are equal, round. Lungs: Are clear in all lung randall. Cardiovascular: Regular rhythm and rate without murmur or S3. Abdomen: Soft. Skin: Warm and dry. : Good urine output. LABORATORY: Reviewed. B12 was 149. Folate 8.1. Both of those low. So we are going to supplement. T4 and TSH looked okay. ASSESSMENT AND PLAN: 1. Deep venous thrombosis. Continue apixaban. Stable. 2. Metastatic breast cancer. Open wound which is doing much better. 3. Disposition. Hopefully get back to [facility]. Waiting on her Psychiatric consult and review. 4. I reviewed her orders. I do not see any change. Blood pressure well controlled. She is on Eliquis 5 mg b.i.d., Lotensin 10 mg a day, Catapres 0.1 mg t.i.d., vitamin B12 500 mcg every day and folic acid 1 mg a day. Metoprolol 25 mg a day. cc: Fernie Godwin MD
--- NOTE | 2016-12-11 15:56 | DISCHARGE SUMMARY ---
ADMISSION DATE: 12/05/2016 DISCHARGE DATE: She came in with agitation and some right lower extremity swelling and discomfort. Briefly, this is a 75-year-old female, who had a mass in her left breast. Actually saw her in July when it was first diagnosed, large breast mass which was felt to be carcinoma and has already been diagnosed as breast cancer. There is concern that it is metastatic when she came in the emergency room. She was discharged on status post mastectomy, very large open wound on the breast. Initial plan was to skin graft but at this point, it has healed and planned to heal topically. Eventually able to go to rehabilitation and has been in rehabilitation. Apparently she had some issues with a roommate and some with the alf services and this is by report and they were concerned that someone was stealing her personal objects. She put a sign that said "do not touch and stay away" apparently. There a few table knives or something like silverware from feeding which somehow it ended up the patient was threatening the life of her roommate and there was a psychiatric history. This was denied by the patient. Indicated she was concerned about someone stealing her stuff. She denied suicide or homicidal ideations or thoughts of harm. She does have a history of bipolar disorder. At any rate, she appeared to be comfortable. She was admitted with a deep venous thrombosis and put on Lovenox. She had in the ER the DVT of the popliteal area and she was admitted for observation. She received topical care. A CT scan from July did show metastatic disease. CT of the abdomen and pelvis on 12/05, there was no evidence of pulmonary emboli, metastatic lesions present in the left lower lobe, right middle lobe. She had hepatic and osseous metastatic disease which has worsened since 08/05/2016. The patient was comfortable, legs felt comfortable. She never had really any pain and she wanted to go back to rehab. DISCHARGE MEDICATIONS: As follows, [place] 7.5 mg q.4 hours p.r.n. pain. Eliquis 5 mg b.i.d. Lotensin 10 mg a day. Catapres 0.1 mg t.i.d. Vitamin B12 500 mg a day. Folic acid 1 mg a day. Toprol-XL 25 mg a day. cc: Fernie Godwin MD
[2016-12-12] MEDS: TOPROL XL PO SCH (08:44)
[2016-12-12] MEDS: ELIQUIS PO SCH ×2 (08:44→20:28)
[2016-12-12] MEDS: TYLENOL PO SCH (08:44)
[2016-12-12] MEDS: LOTENSIN PO SCH (08:44)
[2016-12-12] MEDS: FOLIC ACID PO SCH (08:45)
[2016-12-12] MEDS: VITAMIN B-12 PO SCH (08:45)
--- NOTE | 2016-12-12 16:32 | PROGRESS NOTE ---
DATE: 12/12/2016 SUBJECTIVE: Today, Ms. Olvera refers to be doing fine. She is just waiting for adequate disposition. OBJECTIVE: Vital signs: Blood pressure is 139/64, pulse of 87, respirations 16, temperature 98.0. General Examination: Ms. Olvera is a 76-year-old female. She was in bed. She did not seem to be in any distress. HEENT: Mucosa is pink and moist. Anicteric. Acyanotic. Neck: Supple. Chest: Clear. Cardiovascular: Regular rate and rhythm. Abdomen: Soft. Extremities: No pedal edema. HUMAN FACTORS ENGINEER: Patient was alert and oriented. There is no focal neurological deficit. LABORATORY DATA: None for today. Per review of labs, the patient did show significant B12 and folate deficiencies. ASSESSMENT: 1. Metastatic left breast carcinoma, ER negative, VT negative, and HER2 negative. The patient is followed-up with Dr. Caballero. 2. Acute psychotic reaction. Unsure the cause, but it is completely resolved. There is a report that the patient threatening to kill [facility] in [facility]. Not quite sure the details on that, but the patient completely denies everything. Unsure if this is some form of paraneoplastic reaction to the underlying breast cancer. In any case, the patient is completely stable. Psych has evaluated the patient and they do not think she meets inpatient criteria. 3. Severe B12 and folate deficiency. We will continue to replace this. 4. Hypertension. Stable. cc: Levar Alfredo MD
[2016-12-13] MEDS: ELIQUIS PO SCH ×2 (08:15→20:49)
[2016-12-13] MEDS: VITAMIN B-12 PO SCH (08:16)
[2016-12-13] MEDS: FOLIC ACID PO SCH (08:16)
[2016-12-13] MEDS: TOPROL XL PO SCH (08:16)
[2016-12-13] MEDS: LOTENSIN PO SCH (08:16)
[2016-12-13] MEDS: TYLENOL PO SCH (08:17)
--- NOTE | 2016-12-13 15:17 | PROGRESS NOTE ---
DATE: 12/13/2017 SUBJECTIVE: Ms. Olvera feels good and had been eating fine. No complaints. OBJECTIVE: Vital Signs: Temperature 97.8 degrees, pulse 101, respirations 16, blood pressure 125/79. HEENT: Pupils are equal and round. Lungs are clear in all lung randall. Cardiovascular: Regular rhythm and rate without murmur or S3. Abdomen is soft, nontender, nondistended. Skin is warm and dry. Reviewed lab. White count and chemistries from 12/07/2016 unremarkable. ASSESSMENT AND PLAN: 1. She was sent to the hospital because the [facility] at [place] was concerned about her mental status and what they thought were threatening signs, and there was some controversy, as she has a collection of butter knives apparently. Apparently, she wrote some notes to her roommate to leave her stuff alone. At any rate, that is why she came here. 2. We did find a deep venous thrombosis. We are treating that. She does have metastatic breast cancer. The question is where to go. [facility] does not want to take her back without psychiatric evaluation. There is no psychiatric facility that feels she has grounds to admit, so we are still working on where to place the patient. Hemodynamically appears stable. I will see if we can get Dr. Caballero to render an opinion on whether we are going to pursue treatment, as she does have metastatic breast cancer. Right now, she is comfortable. She is eating, so we are waiting on placement. She is on Lotensin 10 mg a day, Eliquis 5 mg b.i.d., Tylenol 325 mg a day, folic acid 1 mg daily, hydrocodone APAP 7.5 mg q.4 hours p.r.n., metoprolol 25 mg a day. cc: Fernie Godwin MD
[2016-12-14] MEDS: TOPROL XL PO SCH (09:18)
[2016-12-14] MEDS: TYLENOL PO SCH (09:19)
[2016-12-14] MEDS: LOTENSIN PO SCH (09:19)
[2016-12-14] MEDS: VITAMIN B-12 PO SCH (09:19)
[2016-12-14] MEDS: ELIQUIS PO SCH ×2 (09:19→20:08)
[2016-12-14] MEDS: FOLIC ACID PO SCH (09:19)
--- NOTE | 2016-12-14 16:51 | PROGRESS NOTE ---
DATE: 12/14/2016 SUBJECTIVE: Today, Ms. Olvera refers to be doing a lot better. Denies any complaints. She is also just waiting for adequate disposition. OBJECTIVE: Vital signs: Blood pressure is 132/56, pulse of 80, respirations 18, temperature 97.6 degrees. General: Ms. Olvera is a 76-year-old female. She is in bed, in no distress. HEENT: Mucosa pink and moist. Anicteric. Acyanotic. Neck: Supple. Chest: Clear. Cardiovascular: Regular rate and rhythm. There are no murmurs, no rubs, no gallops. Abdomen: Soft. Extremities: No pedal edema. Central Nervous System: Patient is alert and oriented x4. There is no focal neurological deficit. LABORATORY: There is no lab work done. ASSESSMENT: 1. Metastatic left breast carcinoma, ER negative, UT negative, HER2 negative. The patient follows up with Dr. Caballero. 2. Acute psychotic reaction. The patient is said to have had some homicidal note to a [facility]mate in the [facility] and, because of that, the [facility] is not picking her up. Not quite sure if this is a paraneoplastic reaction to the underlying breast cancer. However, patient continues to be remarkably stable over here and has not shown any signs of psychosis. 3. Severe B12 and folate deficiency. We will continue to replace this. 4. Hypertension is stable. 5. Right lower extremity deep vein thrombosis. The patient is currently on Eliquis and will continue with that. In general, I think Ms. Olvera is clinically stable. We are just pending a safe disposition for her discharge. cc: Levar Alfredo MD
[2016-12-15] MEDS: TYLENOL PO SCH (10:09)
[2016-12-15] MEDS: VITAMIN B-12 PO SCH (10:09)
[2016-12-15] MEDS: LOTENSIN PO SCH (10:09)
[2016-12-15] MEDS: ELIQUIS PO SCH ×2 (10:09→20:13)
[2016-12-15] MEDS: TOPROL XL PO SCH (10:10)
[2016-12-15] MEDS: FOLIC ACID PO SCH (10:10)
--- NOTE | 2016-12-15 12:56 | PROGRESS NOTE ---
DATE: 12/15/2016 Ms. Olvera is a 76-year-old white female who has advanced left breast cancer. I did a left modified radical mastectomy. We could not close her wound primarily because of the size of her tumor. Dr. Ruth Caballero has also given her some chemotherapy. We have treated her open wound with a wound VAC and she has a nice clean granulated wound which is just being treated with a dressing at this time. We can consider split thickness skin graft closure at some point. She is a disposition issue. Overall she looks well. cc: Jia Blackburn MD
--- NOTE | 2016-12-15 14:22 | PROGRESS NOTE ---
DATE: 12/15/2016 SUBJECTIVE: Today Ms. Olvera refers to be doing okay. She does not really have any complaints. OBJECTIVE: Her vital signs show blood pressure 134/63, pulse 95, respirations 18, temperature 98.3. General: Ms. Olvera is a 76-year-old female. She is in bed, no distress. HEENT: Mucosa is pink and moist. Anicteric and acyanotic. Neck: Supple. Chest: Clear. Cardiovascular: Regular rate and rhythm. Abdomen: Soft. Extremities: No pedal edema. UNARMED SECURITY OFFICER: The patient is alert and oriented, does not seem to have any neurological deficit. DIAGNOSTIC DATA: No lab work for today. ASSESSMENT: 1. Metastatic left breast carcinoma, ER negative, MD negative, HER2 negative. The patient has been evaluated by Surgery for her breast wound, and they recommend continuing wound care. The patient will also be continued with Dr. Caballero. 2. Acute psychotic reaction. This has completely resolved. The patient denies history of having threatened or leaving any note for anybody. 3. Severe B12 and folate deficiency. We will continue to replace this. 4. Hypertension, controlled. 5. Right lower extremity deep venous thrombosis. The patient is on Eliquis. PLAN: In general, we are still pending arrangement for discharge on Ms. Olvera. Medically she is completely stable. cc: Levar Alfredo MD MTDD
[2016-12-16] MEDS: LOTENSIN PO SCH (09:56)
[2016-12-16] MEDS: TYLENOL PO SCH (09:56)
[2016-12-16] MEDS: TOPROL XL PO SCH (09:56)
[2016-12-16] MEDS: VITAMIN B-12 PO SCH (09:56)
[2016-12-16] MEDS: ELIQUIS PO SCH ×2 (09:56→21:32)
[2016-12-16] MEDS: FOLIC ACID PO SCH (09:56)
--- NOTE | 2016-12-16 13:36 | PROGRESS NOTE ---
DATE: 12/16/2016 SUBJECTIVE: Today Ms. Olvera referred to be doing relatively fine. She did not really have any complaints. We waiting for disposition. OBJECTIVE: Vital signs: Blood pressure is 153/80, pulse is 82, respirations 18 , temperature 97.9 degrees. Physical exam is unchanged from previous days. Neurological: Specifically she continues to be alert and oriented. Follows commands. She, however, looks and responds pretty weird with somewhat pressured speech and a lot of tangentiality to answers to questions. ASSESSMENT: 1. Metastatic left breast carcinoma, ER negative, MD negative, H2 negative. 2. Acute psychotic reaction. This has resolved. 3. B12 and folate deficiency. We will continue to replace. 4. Hypertension. Stable. 5. Right lower extremity deep vein thrombosis. Patient will continue on Eliquis. I think in general Ms. Olvera is medically stable. We are still pending evaluations from the State to get her a safe discharge. cc: Levar Alfredo MD MTDD
[2016-12-17] MEDS: TOPROL XL PO SCH (09:58)
[2016-12-17] MEDS: VITAMIN B-12 PO SCH (09:58)
[2016-12-17] MEDS: FOLIC ACID PO SCH (09:59)
[2016-12-17] MEDS: LOTENSIN PO SCH (09:59)
[2016-12-17] MEDS: TYLENOL PO SCH (09:59)
[2016-12-17] MEDS: ELIQUIS PO SCH ×2 (09:59→21:05)
--- NOTE | 2016-12-17 10:35 | PROGRESS NOTE ---
DATE: 12/17/2016 SUBJECTIVE: Today Ms. Olvera referred to be doing relatively fine. She actually says she does not know why she is still here in the hospital, why I am following her up, and that all her problems will soon be over because Dr. Blackburn will do some further surgery on her. She was just going on without any clear thought process. OBJECTIVE: Vital signs: Blood pressure is 162/74, pulse of 87, respirations 20, temperature 97.2 degrees. General: Ms. Olvera is a 76-year-old female. She is in bed, does not seems to be in any distress. HEENT: Mucosa is pink and moist. Anicteric. Acyanotic. Neck: Supple. Chest: Clear. Cardiovascular: Regular rate and rhythm. Abdomen: Soft. Extremities: No pedal edema. REACTOR FUELING SUPERVISOR: Patient is alert and oriented. Psych: She hardly makes any eye contact. Has a lot of tangentiality in her speech, and does not really make a lot of sense. CURRENT MEDICATIONS: 1. Eliquis. 2. Benazepril. 3. Clonidine. 4. Metoprolol 25. ASSESSMENT: 1. Metastatic left breast cancer. ER negative/NM negative/HER-2 negative. 2. Acute psychotic reaction at an institution. This is resolved, but patient continues to have a lot of tangentiality in her thought process. 3. B 12 and folate deficiency. We will continue to replace this. 4. Uncontrolled hypertension. Patient is on triple medication with three different types of medications. We will add a low-dose diuretic to wait to see if that helps. 5. Right lower extremity deep vein thrombosis. The patient will continue on Eliquis. GENERAL PLAN: Ms. Olvera is clinically stable. We are still awaiting the State evaluation for an adequate disposition. Patient has already been evaluated by [facility] (date 12/11/2016) with the final report stating that she does not meet any criteria for admission to [facility]. cc: Levar Alfredo MD
[2016-12-17] MEDS: HYGROTON PO SCH (11:53)
[2016-12-18] MEDS: HYGROTON PO SCH (08:28)
[2016-12-18] MEDS: FOLIC ACID PO SCH (08:28)
[2016-12-18] MEDS: VITAMIN B-12 PO SCH (08:28)
[2016-12-18] MEDS: LOTENSIN PO SCH (08:28)
[2016-12-18] MEDS: TOPROL XL PO SCH (08:28)
[2016-12-18] MEDS: TYLENOL PO SCH (08:28)
[2016-12-18] MEDS: ELIQUIS PO SCH ×2 (08:28→20:21)
[2016-12-18] MEDS ORDERED: EPINEPHRINE ONE (09:31)
[2016-12-18] MEDS ORDERED: MURI-LUBE MINERAL OIL ONE (09:31)
[2016-12-18] MEDS ORDERED: KEFZOL 1 GM/D5W 1 GM/50 ML IVPB ONE (09:37)
[2016-12-18] MEDS ORDERED: DIPRIVAN 1% ONE (10:40)
[2016-12-18] MEDS ORDERED: LR 1,000 ML ONE (10:49)
[2016-12-18] MEDS ORDERED: XYLOCAINE-MPF 2% ONE (10:49)
--- NOTE | 2016-12-18 11:23 | OPERATIVE NOTE ---
PROCEDURE DATE: 12/18/2016 PREOPERATIVE DIAGNOSIS: Open wound left mastectomy site. POSTOPERATIVE DIAGNOSIS: Open wound left mastectomy site. PRINCIPAL PROCEDURE: 1. Preparation of skin graft recipient site, anterior left chest. 2. Split-thickness skin graft measuring 4 x 8 cm open wound, left chest. SURGEON: Jia Blackburn MD AIRCRAFT INSTRUMENT MECHANIC: faith Hernández. ANESTHESIA: General. ESTIMATED BLOOD LOSS: 50 mL. DRAINS: None. We placed a wound VAC over the skin graft. INDICATIONS: Melody Olvera is a 76-year-old white female who had locally advanced left breast cancer. I performed a toilet mastectomy on her recently. I was unable to close the wound completely and she has an open wound at the left mastectomy site medially measuring 4 x 8 cm. There is good granulation tissue and its clean. It was felt we should place a split-thickness skin graft in this area to help close the wound. DESCRIPTION OF PROCEDURE: The patient was brought to the operating room, placed supine, received general anesthesia, was intubated. Her left chest and left thigh were prepped and draped in a sterile field. She received Ancef prophylactically. She had granulation tissue involving the open wound to left chest from the mastectomy site and we debrided some of that granulation tissue with a 10 blade scalpel to prepare the site for split thickness skin graft. I used a dermatome and took a 1 inch wide, 8 cm in length skin graft from her anterior left thigh. I meshed it 1.5 to 1 with a mesher and I placed the meshed skin graft on our open wound, left chest. I secured it circumferentially with a skin stapler and then the nurses placed a wound VAC. We placed a clear dressing over the donor site. She tolerated the procedure well, with plans for to go the recovery room and then be readmitted to the hospital. cc: Jia Blackburn MD
[2016-12-19] MEDS: VITAMIN B-12 PO SCH (08:46)
[2016-12-19] MEDS: LOTENSIN PO SCH (08:47)
[2016-12-19] MEDS: FOLIC ACID PO SCH (08:47)
[2016-12-19] MEDS: TYLENOL PO SCH (08:47)
[2016-12-19] MEDS: TOPROL XL PO SCH (08:47)
[2016-12-19] MEDS: ELIQUIS PO SCH ×2 (08:47→20:47)
[2016-12-19] MEDS: HYGROTON PO SCH (08:47)
[2016-12-19] MEDS ORDERED: VERSED ONE (08:50)
--- NOTE | 2016-12-19 09:44 | PROGRESS NOTE ---
DATE: 12/19/2016 SUBJECTIVE: Ms. Olvera is awake and alert, feels good, walking around. OBJECTIVE: Vital Signs: Temp 98.6 degrees, pulse 98, respirations 21, blood pressure 127/58. HEENT: Pupils are equal. CVP less than 6 cm. Lungs: Clear in all lung randall. Cardiovascular exam: Regular rhythm and rate without murmur or S3. : Good urine output. She still has a Sam catheter. LABS: White count 4720; this was from 12/07. Chemistries from 12/07 unremarkable. I may check some more labs on her. ASSESSMENT AND PLAN: 1. Preparation for skin graft was done open wound. Left mastectomy split-thickness graft 4 x 8 placed on left chest, and seems to be healing well. 2. Metastatic left breast cancer. ER negative CA negative, HER2 negative. 3. Mental status cognitive function looks good. 4. B 12 and folate deficiency which we are supplementing. 5. Blood pressure looks well controlled. 6. Nutrition is good. Good oral intake. Review of her orders: She is on Eliquis 5 mg b.i.d., Lotensin 10 mg daily, Catapres 0.1 mg t.i.d. p.r.n., folic acid 1 mg daily, metoprolol 25 mg a day and [place] at 12.5 mg daily. cc: Fernie Godwin MD
[2016-12-20] MEDS: TYLENOL PO SCH (09:23)
[2016-12-20] MEDS: LOTENSIN PO SCH (09:23)
[2016-12-20] MEDS: HYGROTON PO SCH (09:23)
[2016-12-20] MEDS: FOLIC ACID PO SCH (09:23)
[2016-12-20] MEDS: TOPROL XL PO SCH (09:23)
[2016-12-20] MEDS: ELIQUIS PO SCH ×2 (09:24→20:22)
[2016-12-20] MEDS: VITAMIN B-12 PO SCH (09:24)
--- NOTE | 2016-12-20 14:56 | PROGRESS NOTE ---
DATE: 12/20/2016 SUBJECTIVE: She is awake and alert. Feels good. OBJECTIVE: Vital Signs: Temp 97.9 degrees, pulse 90, respirations 18, blood pressure 142/78. HEENT: Pupils are equal round. CVP less than 6 cm. Lungs: Clear in all lung randall. Cardiovascular: Regular rhythm and rate without murmur or S3. Abdomen: Soft. Skin is warm and dry. Good urine output. LAB: Unremarkable from the . May want a repeat some. ASSESSMENT AND PLAN: 1. A split-thickness skin graft placed in the left chest. He has a wound vacuum-assisted closure on there. Seems to be healing well. 2. Metastatic breast cancer. 3. Some cognitive decline. 4. B12 and folate deficiency which were supplementing. 5. Nutrition good and good p.o. intake. DISCHARGE PLANS: Awaiting to see if there is any possibility of rehab placement or intermediate placement. At this point, it does not look very promising. cc: Fernie Godwin MD
[2016-12-21] MEDS: VITAMIN B-12 PO SCH (09:59)
[2016-12-21] MEDS: FOLIC ACID PO SCH (09:59)
[2016-12-21] MEDS: TYLENOL PO SCH (09:59)
[2016-12-21] MEDS: ELIQUIS PO SCH ×2 (09:59→20:10)
[2016-12-21] MEDS: HYGROTON PO SCH (09:59)
[2016-12-21] MEDS: LOTENSIN PO SCH (09:59)
[2016-12-21] MEDS: TOPROL XL PO SCH (10:00)
--- NOTE | 2016-12-21 11:54 | PROGRESS NOTE ---
DATE: 12/21/2016 SUBJECTIVE: She states she has complaints, feels good, apparently eating well. Wound VAC looks good. OBJECTIVE: Lungs: Clear in all lung randall. Cardiovascular: Regular rhythm and rate, without murmur or S3. Abdomen: Soft. Vital signs: Temperature 98.2 degrees, pulse 92, respirations 19, blood pressure 143/84. HEENT: Pupils are equal and round. Abdomen: Soft. Skin: Warm and dry. LABORATORY: No new laboratories since 12/07/2016. ASSESSMENT AND PLAN: 1. Metastatic breast cancer. She had an open wound on her chest and split-thickness graft done by Dr. Blackburn. Wound VAC in place, healing well. 2. Episodes of some confusion, looking for placement. 3. Nutrition is fairly good. Her p.o. intake has improved. 4. B12 and folate deficiency, supplementing. cc: Fernie Godwin MD
[2016-12-22] MEDS: TYLENOL PO SCH (08:39)
[2016-12-22] MEDS: ELIQUIS PO SCH ×2 (08:41→20:26)
[2016-12-22] MEDS: TOPROL XL PO SCH (08:41)
[2016-12-22] MEDS: FOLIC ACID PO SCH (08:41)
[2016-12-22] MEDS: HYGROTON PO SCH (08:42)
[2016-12-22] MEDS: VITAMIN B-12 PO SCH (08:42)
[2016-12-22] MEDS: LOTENSIN PO SCH (08:44)
--- NOTE | 2016-12-22 12:17 | PROGRESS NOTE ---
DATE: 12/22/2016 SUBJECTIVE: Ms. Olvera is feeling much better. She is ambulating well. I am going to discontinue her heart monitor. Remains afebrile. PHYSICAL EXAMINATION: Vital Signs: Temperature 98.2 degrees, pulse 94, respirations 20, blood pressure 140/72. HEENT: Pupils are equal and round. CVP less than 6 cm. Lungs: Clear in all lung randall. Cardiovascular Examination: Regular rhythm and rate without murmur or S3. Abdomen: Soft. Skin: Is warm and dry. LABORATORY DATA: No new labs. ASSESSMENT AND PLAN: 1. Metastatic breast cancer. She had a split-thickness graft to the wound on the right chest. Anterior chest healing well. Wound VAC in place. 2. Nutrition is good. 3. Episodes of confusion, which are improving. 4. B12 and folate deficiency. 5. Looking for placement for discharge approaching. Hopefully, we can discharge her on Friday or Friday. Looking over her orders, I do not see any change. cc: Fernie Godwin MD
[2016-12-23] MEDS: ELIQUIS PO SCH ×2 (08:23→21:40)
[2016-12-23] MEDS: HYGROTON PO SCH (08:23)
[2016-12-23] MEDS: LOTENSIN PO SCH (08:25)
[2016-12-23] MEDS: TOPROL XL PO SCH (08:25)
[2016-12-23] MEDS: TYLENOL PO SCH (08:25)
[2016-12-23] MEDS: FOLIC ACID PO SCH (08:25)
[2016-12-23] MEDS: VITAMIN B-12 PO SCH (08:25)
--- NOTE | 2016-12-23 14:34 | Diag Imaging Result Doc PS360 ---
EXAM: CHEST-2 VIEWS HISTORY: metastatic breast cancer TECHNIQUE: COMPARISON: None. FINDINGS: The lungs are well expanded. The heart is not enlarged. The vessels are not distended. There are no infiltrates. No pleural effusions. There is a right-sided portacatheter. No pneumothorax. No lung nodules identified. Skin brie overlying the lower left chest. Apparent old injury to the posterior left rib. IMPRESSION: No acute abnormality. Electronically signed by Barak Pelaez 12/23/2016 2:32 PM
--- NOTE | 2016-12-23 14:37 | PROGRESS NOTE ---
DATE: 12/23/2016 SUBJECTIVE: Ms. Olvera is comfortable. She feels good. Denies any pain. No shortness of breath. Her wound VAC on her chest looks good. OBJECTIVE: Vital Signs: Afebrile. Temperature 98.4 degrees, pulse 94, respiration is 18, blood pressure 123/68. HEENT: Pupils are equal and round. Lungs: Clear in all lung randall. Cardiovascular: Regular rhythm and rate without murmur or S3. Abdomen: Soft. Skin: Warm and dry. : Good urine output. REVIEW OF LAB: No new lab since the . ASSESSMENT AND PLAN: 1. Metastatic breast cancer. She had a wound on her chest repaired with split-thickness skin grafting. Wound VAC in place. Healing well. 2. Nutrition is improved. P.o. intake is good. 3. Episodes of confusion which are improving. 4. B12 and folate deficiency. 5. We need to figure out her placement. personal care worker is working on that. I will recheck some lab again in the morning, CBC and chem 22. We will check a chest x-ray, as well. cc: Fernie Godwin MD
[2016-12-24] MEDS: FOLIC ACID PO SCH (08:16)
[2016-12-24] MEDS: TYLENOL PO SCH (08:16)
[2016-12-24] MEDS: TOPROL XL PO SCH (08:16)
[2016-12-24] MEDS: ELIQUIS PO SCH ×2 (08:16→20:33)
[2016-12-24] MEDS: HYGROTON PO SCH (08:17)
[2016-12-24] MEDS: VITAMIN B-12 PO SCH (08:17)
[2016-12-24] MEDS: LOTENSIN PO SCH (08:17)
[2016-12-24 09:22] LABS: MANUAL DIFF NEEDED? NO
[2016-12-24 09:25] LABS: BASO% 0.5 % (0.0-0.8); EOS# 0.19 X1000 (0.0-0.7); EOS% 2.5 % (0.0-10.0); HEMATOCRIT 41.9 % (37.0-47.0); HEMOGLOBIN 13.5 g/dL (12.0-16.0); IMM GRAN# 0.02 X1000 (0.0-0.04); IMM GRAN% 0.3 % (0.0-0.5); LYMPH# 2.42 X1000 (1.2-3.4); LYMPH% 31.8 % (20.5-51.1); MCH 30.4 PG (27-31); MCHC 32.2 g/dL (33-37); MCV 94.4 FL (81-99); MONO# 0.82 X1000 (0.11-0.59); MONO% 10.8 % (1.7-9.3); NEUT% 54.1 % (42.2-75.2); PLT 255 X1000 (130-400); RBC 4.44 XMIL (4.2-5.4)
[2016-12-24 09:54] LABS: AGAP 19; ALKALINE PHOSPHATASE 83 U/L (32-104); BUN 21 mg/dL (8-22); CALCIUM 8.9 mg/dL (8.8-10.2); CHLORIDE 97 mmol/L (98-107); COSMO 282; GOT 19 U/L (10-30); GPT 14 U/L (10-36); POTASSIUM 3.7 mmol/L (3.5-5.1); SODIUM 139 mmol/L (136-145); TCO2 23 mmol/L (25-35); TOTAL BILIRUBIN 0.27 mg/dL (0.20-1.00); TOTAL PROTEIN 7.4 g/dL (6.3-8.3)
--- NOTE | 2016-12-24 16:23 | PROGRESS NOTE ---
DATE: 12/24/2016 SUBJECTIVE: Today Ms. Olvera referred to be doing fine. She said when I asked her how she is doing, she just said, "I am doing." She said some of her sisters have come to visit her and she is planning to go and live with two of them. She was not able to tell me which of the sisters she plans to go and live with. OBJECTIVE: Vital Signs: Stable. Blood pressure is 117/65, pulse of 79, respiration is 15, temperature is 97.7 degrees. General Appearance: Ms. Olvera is a 76-year-old female. She is in bed, does not seem to be in any distress. HEENT: Mucosa is pink and moist. Anicteric. Acyanotic. Neck: Supple. BRAIDING MACHINE OPERATOR: Patient is alert, seems to be oriented. Psychiatric: The patient is extremely reserved and not very forthcoming and cooperative with interrogation and physical exams. ASSESSMENT: 1. Metastatic breast cancer. The patient has been evaluated by Surgery. A graft on the wound has been done and seems to be healing well, being followed by Dr. Blackburn. 2. Episode of confusion is completely improved. 3. B12 and folate deficiency is being addressed. 4. Suspected underlying psychosis. The patient has been evaluated with suspected underlying psychosis with alert, homicidal note to a roommate. According to the patient, she denied this very well. Has been evaluated also by [facility], they do not think she needs inpatient. Patient has also been evaluated by the [facility] and we are still pending their final recommendations. 5. The patient will be seen by Dr. Mccarty beginning tomorrow. cc: Levar Alfredo MD
[2016-12-25] MEDS: VITAMIN B-12 PO SCH (08:59)
[2016-12-25] MEDS: TOPROL XL PO SCH (08:59)
[2016-12-25] MEDS: ELIQUIS PO SCH ×2 (08:59→22:22)
[2016-12-25] MEDS: FOLIC ACID PO SCH (08:59)
[2016-12-25] MEDS: HYGROTON PO SCH (08:59)
[2016-12-25] MEDS: TYLENOL PO SCH (08:59)
[2016-12-25] MEDS: LOTENSIN PO SCH (08:59)
--- NOTE | 2016-12-25 13:43 | PROGRESS NOTE ---
DATE: 12/25/2016 SUBJECTIVE: The patient is resting comfortably in bed. She states that she is waiting on her sister to come pick her up. OBJECTIVE: Vital Signs: Temperature 98 degrees, blood pressure 151/81, heart rate 89, respirations 18, O2 saturation 99% on room air. General: This is a chronically ill-appearing, elderly female, lying in bed in no acute distress. Head: Normocephalic, atraumatic. Heart: S1 and S2 normal. Regular rate and rhythm. Lungs: Clear to auscultation bilaterally. Abdomen: Positive bowel sounds. Soft, nontender, nondistended. Extremities: No edema. No cyanosis. No calf tenderness. Neurological: Patient is alert and oriented x3. LABORATORY: No new labs. ASSESSMENT AND PLAN: 1. Psychosis. Currently awaiting disposition for the patient. 2. Right lower extremity deep vein thrombosis. Continue on Eliquis. 3. Status post open left mastectomy wound, status post anterior left chest wall skin graft. Continue with wound care as directed by the general surgeon. 4. Hypertension. Continue on the current antihypertensive therapy. 5. Vitamin B12 and folate deficiency. Continue with vitamin B12 and folate replacement. cc: Elham Mccarty MD MTDD
[2016-12-26] MEDS: ELIQUIS PO SCH ×2 (08:07→20:04)
[2016-12-26] MEDS: TYLENOL PO SCH (08:07)
[2016-12-26] MEDS: HYGROTON PO SCH (08:07)
[2016-12-26] MEDS: LOTENSIN PO SCH (08:07)
[2016-12-26] MEDS: VITAMIN B-12 PO SCH (08:07)
[2016-12-26] MEDS: TOPROL XL PO SCH (08:07)
[2016-12-26] MEDS: FOLIC ACID PO SCH (08:07)
--- NOTE | 2016-12-26 11:38 | PROGRESS NOTE ---
DATE: 12/26/2016 SUBJECTIVE: The patient is sitting up in bed. She has no complaints. OBJECTIVE: Vital Signs: Temperature 97 degrees, blood pressure 148/67, heart rate 84, respirations 16, O2 saturation 98% on room air. General: This is an elderly female, sitting at the edge of the bed in no acute distress. Head: Normocephalic, atraumatic. Heart: S1 and S2 normal. Regular rate and rhythm. Lungs: Clear to auscultation bilaterally. Abdomen: Positive bowel sounds. Soft, nontender, nondistended. Extremities: No edema. No cyanosis. No calf tenderness. Neurologic: The patient is alert and oriented. ASSESSMENT AND PLAN: 1. Psychosis. Aware. 2. Right lower extremity deep vein thrombosis. Continue on Eliquis. 3. Open left mastectomy wound status post anterior left chest wall skin graft. Stable. Continue with wound care. 4. Hypertension. Continue on the current antihypertensive regimen. 5. Vitamin B12 and folate deficiency. Continue with vitamin B12 and folate replacement. cc: Elham Mccarty MD
[2016-12-27] MEDS: TOPROL XL PO SCH (08:51)
[2016-12-27] MEDS: TYLENOL PO SCH (08:51)
[2016-12-27] MEDS: HYGROTON PO SCH (08:51)
[2016-12-27] MEDS: LOTENSIN PO SCH (08:51)
[2016-12-27] MEDS: VITAMIN B-12 PO SCH (08:51)
[2016-12-27] MEDS: ELIQUIS PO SCH (08:51)
[2016-12-27] MEDS: FOLIC ACID PO SCH (08:51)
[2016-12-27 13:06] VITALS: BP 129/63
--- NOTE | 2016-12-27 15:45 | DISCHARGE SUMMARY ---
ADMISSION DATE: 12/05/2016 DISCHARGE DATE: 12/27/2016 PERTINENT PROCEDURES: 1. Abdomen and pelvis CT showed no evidence of pulmonary emboli. Metastatic lesions present in the left lower lobe and right middle lobe some of which are enlarged or were not present at the time of previous study. 2. Hepatic and osseous metastatic disease which has worsened since previous study. 3. Head CT showed extensive chronic ischemic white matter changes. Microvascular changes in the basal ganglia and thalamus. No evidence of acute change. 4. Preparation of skin graft. Recipient site: Anterior left chest. Split thickness skin graft measuring 4.8 cm open wound left chest by Dr. Blackburn. Replacement of wound VAC over the skin graft. DISCHARGE DIAGNOSES: 1. Psychosis. 2. Right lower extremity DVT 3. Open left mastectomy wound status post left anterior chest wall skin graft 4. Hypertension. 5. Vitamin B12 deficiency 6. Folate deficiency HOSPITAL COURSE: Briefly, Ms. Olvera is a 76-year-old female who has a mass in her left breast which was felt to be carcinoma she had already been diagnosed with breast cancer. There is concern for metastasis at this point. She was discharged to [facility] in [place] status post mastectomy, however, there was a very large open wound and that the initial plan was for a skin graft. Apparently while she was in rehabilitation at [facility] she had some issue with her roommate as well as retirement services at the facility in which she was concerned that they were stealing her personal objects. She put a sign-out that said "please do not touch" or " please stay away." Apparently there were a few knives she kept from the silverware, from her trays and somehow it ended up being construed that the patient threatening the life of her roommate and that there were psychiatric issues with harming other people. She has denied that to the staff here. she denied any suicidal or homicidal ideations. Subsequently in the ED her workup revealed a DVT in her right popliteal area so she was admitted for DVT as well as evaluation for her open wound on her left chest. Initially she was started on full dose Lovenox and transitioned to p.o. Eliquis. In reference to her psychiatric issues, we did have [facility] try to come out and evaluate the patient. She did refuse. We had the state come out. We also put in a referral for [facility] for psychiatric treatment, however, they stated that the medical staff manager at [facility] stated that the patient did not need psychiatric treatment but needed hospice. After finding notes as well as plastic knives in the patient's room, Transport Assistant reconsulted [facility] to see if they could schedule a re-evaluation for psychiatric placement. The note was read aloud to the screener at [facility] and the screener stated that there was nothing that seemed homicidal or suicidal in the letter and that the patient would have to be ready for discharge before they would come re-evaluate. The state is coming out to re-evaluate her again today prior to her discharge to [facility]. While the patient was here she also got her skin graft with Dr. Blackburn on 12/18/2016. The patient has ultimately been awaiting long-term placement and hopefully after her evaluation today she will be able to go to rehabilitation. VITAL SIGNS: Temperature is 97.6 degrees, heart rate 82, respirations 18, blood pressure is 130/76, O2 is 98% on room air. DISCHARGE DIET: Healthy heart. DISCHARGE MEDICATIONS: As per Dr. Mccarty. Please see MAR. FOLLOWUP: The patient is being discharged to rehabilitation today after [facility] evaluation. She will continue on her p.o. Eliquis for her DVT and follow up with Dr. Blackburn. She will continue wound care on her left chest area from her skin graft. Her brie have been removed. The graft appears to be healing well. Her wound was cleaned on 12/26/2016 and removed brie. They applied Xeroform gauze and covered with Mepilex. The donor site to the left thigh showed new epithelial tissue noted. The wound was healing but no drainage. Cleaned and applied Xeroform gauze and Mepilex. The patient can return to the ED for any worsening of symptoms. DISCHARGE TIME: Greater than 40 minutes. Dictated by GERARD Aranda for Elham Mccarty MD cc: MD JANNETH Yanes
== END 2016-12-27 17:43 ==
LOC: ED 12:52 → SUATTDRO 19:19 → 3N 19:19
PROVIDERS: ATTEND Internal Medicine